=== PATIENT | male | born 1980 | race Caucasian/White ===

== ENCOUNTER 2019-08-27 14:53 | Emergency (ER) | payer BC ==
[2019-08-27 16:43] LABS: ANION GAP 14.1; CHLORIDE,CL 99 mmol/L (101-111); SODIUM,NA 136 mmol/L (135-145)
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
== END 2019-08-27 17:37 | disposition home or self-care (01) ==
LOC: DL.ED 14:53
DX: T17.900A Unspecified foreign body in respiratory tract, part unspecified causing asphyxiation, initial encounter (principal); R05 Cough; R11.10 Vomiting, unspecified; I10 Essential (primary) hypertension; F17.210 Nicotine dependence, cigarettes, uncomplicated; Z79.899 Other long term (current) drug therapy
CPT/HCPCS: 36415; 80053; 85025; 85379; 99284

== ENCOUNTER → 2020-03-14 | Day surgery (SDC) | payer BC ==
[~2020-03-14] MED LIST: Dextrose 5%-0.45% NaCl 1,000 ML IV SCH; Midazolam 1 MG/ML 2 ML SDV IV ONE; Midazolam 1 MG/ML 2 ML SDV ONE; Sodium Chloride 0.9% 10 ML Syringe FLUSH PRN; fentaNYL 100 MCG/2 ML SDV IV ONE; fentaNYL 100 MCG/2 ML SDV ONE
--- NOTE | 2020-03-14 09:11 | OR ---
DATE: 03/14/2020 PROCEDURE: Esophagogastroduodenoscopy and multiple pinch biopsies. INSTRUMENT USED: [id number] Olympus video panendoscope. PREMEDICATIONS: No oral or topical anesthesia used. Fentanyl 100 mcg intravenous, Versed 2 mg intravenous. The procedure was done under pulse oximetry, BP recording, and mechanical manufacturing engineer. INDICATION: The patient with longstanding persistent heartburn, unexplained and not responsive to medical measures and on high-dose PPI. Esophagogastroduodenoscopy is performed for detection of any active erosive lesions, Poe esophagus and/or malignancy also under consideration, H. pylori status to be determined, endoscopic hemostasis therapy if needed. DESCRIPTION OF PROCEDURE: The scope was passed with ease. Adequate visualization of the esophagus was made from proximal to distal areas. No upper esophageal lesions identified. No distal esophageal stricture. No uphill or downhill esophageal varices. No Lenka-Kingsley tear. No evidence of erosive esophagitis by [place] criteria. No esophageal polyp or tumor mass identified. Z-line was seen at around 40 cm distal to the oral verge, configuration consistent with grade 1 by ZAP classification. No proximal gastric varices noted. Gastric fundus examination by retroflexion showed no polypoid lesions. No gastric ulcer, malignant mass, or vascular ectasia identified. Duodenal bulb was unremarkable. Visualized 2nd part of the duodenum was normal. Multiple pinch biopsies were taken from the gastric antrum and proximal body and sent for PyloriTek test for H. pylori and histopathology. Four-quadrant biopsies were also taken from the distal and proximal esophagus and sent for any histopathologic evidence of esophageal eosinophilia. No bleeding was noted from any of the visualized areas at the completion of examination. IMPRESSION: Normal study. The patient tolerated the procedure well. [facility] /[id number]
--- NOTE | 2020-03-14 10:18 | LETTER ---
DATE: 03/14/2020 AMAURY [place] [address] Dear Ms. Matos: Mr. Kurtis Frias had esophagogastroduodenoscopy done this morning and he tolerated the procedure well. I herewith send a copy of the endoscopy note and photographs for your review. Thank you. Sincerely, [facility] /[id number] MTDD
== END | disposition home or self-care (01) ==
LOC: DL.ENDO 06:27
PROVIDERS: ATTEND Internal Medicine Gastroenterology
DX: R12 Heartburn (principal); E66.09 Other obesity due to excess calories; I10 Essential (primary) hypertension; K21.9 Gastro-esophageal reflux disease without esophagitis; F17.210 Nicotine dependence, cigarettes, uncomplicated; Z87.828 Personal history of other (healed) physical injury and trauma; Z79.899 Other long term (current) drug therapy; Z68.29 Body mass index [BMI] 29.0-29.9, adult
CPT/HCPCS: 43239; 87077; J2250; J3010; J7042

== ENCOUNTER 2020-09-16 19:55 | Inpatient (IN) | payer BC ==
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
[2020-09-16] MEDS ORDERED: Ondansetron 4 MG/2 ML SDV IVPUSH ONE (20:17)
[2020-09-16] MEDS ORDERED: fentaNYL 100 MCG/2 ML SDV IVPUSH ONE ×2 (20:17→22:02)
[2020-09-16] MEDS ORDERED: Sodium Chloride 0.9% 1,000 ML IV ONE (20:17)
[2020-09-16] MEDS ORDERED: Iopamidol 612 MG/ML 100 ML Bottle IVPUSH ONE (20:20)
[2020-09-16 20:40] LABS: ANION GAP 12.4 mEq/L (7-13); CHLORIDE,CL 99 mmol/L (98-107); SODIUM,NA 137 mmol/L (136-145)
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
[2020-09-16] MEDS ORDERED: Acetaminophen 500 MG Tab PO PRN (23:00)
[2020-09-16] MEDS ORDERED: Enoxaparin 40 MG/0.4 ML Syringe SUBCUT SCH (23:00)
[2020-09-16] MEDS ORDERED: Zolpidem 5 MG Tab PO PRN (23:02)
[2020-09-16] MEDS ORDERED: LORazepam 2 MG/ML SDV IV PRN (23:04)
[2020-09-16] MEDS ORDERED: Ketorolac 30 MG/ML SDV IVPUSH PRN (23:06)
[2020-09-16] MEDS ORDERED: Zolpidem 5 MG Tab PO ONE (23:10)
[2020-09-16] MEDS ORDERED: Enoxaparin 40 MG/0.4 ML Syringe SUBCUT ONE (23:10)
[2020-09-17] MEDS ORDERED: Ketorolac 30 MG/ML SDV IVPUSH ONE (00:15)
[2020-09-17] MEDS ORDERED: HYDROmorphone 1 MG/ML Syringe IV ONE (00:15)
[2020-09-17] MEDS ORDERED: Lactated Ringers 1,000 ML IV ONE (00:25)
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
[2020-09-17] MEDS: HYDROmorphone 1 MG/ML Syringe IV PRN ×4 (05:14→22:06)
[2020-09-17] MEDS: Lactated Ringers 1,000 ML IV SCH ×5 (05:15→20:03)
[2020-09-17] MEDS ORDERED: Omeprazole 20 MG Cap.CR PO SCH (06:00)
[2020-09-17 06:55] LABS: ANION GAP 14.1 mEq/L (7-13); CHLORIDE,CL 102 mmol/L (98-107); SODIUM,NA 138 mmol/L (136-145)
[2020-09-17] MEDS: Enoxaparin 40 MG/0.4 ML Syringe SUBCUT SCH (08:56)
[2020-09-17] MEDS ORDERED: LORazepam 1 MG Tab PO PRN (09:23)
[2020-09-17] MEDS ORDERED: LORazepam 2 MG/ML SDV IV PRN (09:30)
--- NOTE | 2020-09-17 12:14 | PCM.PN ---
- General Info Date of Service: 09/17/20 Admission Dx/Problem (Free Text): Admission Diagnosis/Problem Admission Diagnosis/Problem Pancreatitis Subjective Update: Pt was seen in Room, still has pain but improving and mild nausea no vomiting, No fever or chill, Had no BM Functional Status: Reports: Pain Controlled, Tolerating Diet (will start with clear liquid), Ambulating, Urinating - Review of Systems General: Denies: Fever, Weakness, Malaise HEENT: Denies: Dysphasia, Post Nasal Drip, Sinus Congestion, Sore Throat Pulmonary: Denies: Shortness of Breath, Cough, Wheezing Cardiovascular: Denies: Chest Pain, Dyspnea on Exertion, Lightheadedness Gastrointestinal: Reports: Abdominal Pain. Denies: Diarrhea, Difficulty Swallowing, Nausea, Vomiting Genitourinary: Denies: Dysuria, Burning, Urgency, Flank Pain Musculoskeletal: Denies: Neck Pain, Leg Pain, Joint Pain Skin: Denies: Cyanosis, Jaundice, Bruising, Pruritis, Rash Neurological: Denies: Confusion, Dizziness, Tremors, Weakness Psychiatric: Denies: Confusion, Anxiety, Agitation - Patient Data Vitals - Most Recent: Last Vital Signs Temp 36.8 C 09/17/20 08:00 Pulse 62 09/17/20 08:00 Resp 16 09/17/20 08:00 BP 157/95 H 09/17/20 08:00 Pulse Ox 97 09/17/20 08:00 Weight - Most Recent: 106.594 kg I&O - Last 24 Hours: Intake & Output 09/16/20 09/17/20 09/17/20 22:59 06:59 14:59 Intake Total 1000 Output Total 700 Balance 300 Lab Results Last 24 Hours: Laboratory Results - last 24 hr 09/16/20 09/16/20 09/16/20 Range/Units 20:06 20:06 20:06 WBC 10.9 H (5.0-10.0) 10^3/uL RBC 4.86 (4.6-6.2) 10^6/uL Hgb 16.8 D (14.0-18.0) g/dL Hct 47.1 (40.0-54.0) % MCV 96.9 (80-100) fL MCH 34.6 H (27.0-34.0) pg MCHC 35.7 H (33.0-35.0) g/dL Plt Count 212 (150-450) 10^3/uL Neut % (Auto) 69.8 (42.2-75.2) % Lymph % (Auto) 18.5 L (20.5-50.1) % [place] % (Auto) 10.2 H (2-8) % Eos % (Auto) 0.9 L (1.0-3.0) % Baso % (Auto) 0.6 (0.0-1.0) % Sodium 137 (136-145) mmol/L Potassium 4.4 (3.5-5.1) mmol/L Chloride 99 (98-107) mmol/L Carbon Dioxide 30 (21-32) mmol/L Anion Gap 12.4 (7-13) mEq/L BUN 10 (7-18) mg/dL Creatinine 1.01 (0.70-1.30) mg/dL Est Cr Clr Drug Dosing 116.20 mL/min Estimated GFR (MDRD) > 60 BUN/Creatinine Ratio 9.9 (No establ ref range) Glucose 134 H (74-99) mg/dL Lactic Acid 2.0 (0.4-2.0) mmol/L Calcium 9.8 (8.5-10.1) mg/dL Phosphorus (2.6-4.7) mg/dL Magnesium (1.8-2.4) mg/dL Total Bilirubin 0.5 (0.2-1.0) mg/dL Direct Bilirubin (0.0-0.2) mg/dL Indirect Bilirubin AST 94 H (15-37) U/L ALT 207 H (16-63) U/L Alkaline Phosphatase 84 (46-116) U/L Total Protein 7.6 (6.4-8.2) g/dL Albumin 4.4 (3.4-5.0) g/dL Globulin 3.2 Albumin/Globulin Ratio 1.38 Amylase 869 H (25-115) U/L Lipase 9492 H (73-393) U/L Urine Color (YELLOW) Urine Appearance (CLEAR) Urine pH (5.0-9.0) Ur Specific [place] (1.005-1.030) Urine Protein (NEGATIVE) Urine Glucose (UA) (NEGATIVE) Urine Ketones (NEGATIVE) Urine Occult Blood (NEGATIVE) Urine Nitrite (NEGATIVE) Urine Bilirubin (NEGATIVE) Urine Urobilinogen (0.2-1.0) mg/dL Ur Leukocyte Esterase (NEGATIVE) Ethyl Alcohol (0) mg/dL SARS-CoV-2 RNA (ALEN) (NEGATIVE) 09/16/20 09/16/20 09/17/20 Range/Units 20:06 21:59 04:55 WBC (5.0-10.0) 10^3/uL RBC (4.6-6.2) 10^6/uL Hgb (14.0-18.0) g/dL Hct (40.0-54.0) % MCV (80-100) fL MCH (27.0-34.0) pg MCHC (33.0-35.0) g/dL Plt Count (150-450) 10^3/uL Neut % (Auto) (42.2-75.2) % Lymph % (Auto) (20.5-50.1) % [place] % (Auto) (2-8) % Eos % (Auto) (1.0-3.0) % Baso % (Auto) (0.0-1.0) % Sodium (136-145) mmol/L Potassium (3.5-5.1) mmol/L Chloride (98-107) mmol/L Carbon Dioxide (21-32) mmol/L Anion Gap (7-13) mEq/L BUN (7-18) mg/dL Creatinine (0.70-1.30) mg/dL Est Cr Clr Drug Dosing mL/min Estimated GFR (MDRD) BUN/Creatinine Ratio (No establ ref range) Glucose (74-99) mg/dL Lactic Acid (0.4-2.0) mmol/L Calcium (8.5-10.1) mg/dL Phosphorus (2.6-4.7) mg/dL Magnesium (1.8-2.4) mg/dL Total Bilirubin (0.2-1.0) mg/dL Direct Bilirubin (0.0-0.2) mg/dL Indirect Bilirubin AST (15-37) U/L ALT (16-63) U/L Alkaline Phosphatase (46-116) U/L Total Protein (6.4-8.2) g/dL Albumin (3.4-5.0) g/dL Globulin Albumin/Globulin Ratio Amylase (25-115) U/L Lipase (73-393) U/L Urine Color Yellow (YELLOW) Urine Appearance Slightly cloudy (CLEAR) Urine pH 5.5 (5.0-9.0) Ur Specific [place] 1.015 (1.005-1.030) Urine Protein Negative (NEGATIVE) Urine Glucose (UA) Negative (NEGATIVE) Urine Ketones 15 H (NEGATIVE) Urine Occult Blood Negative (NEGATIVE) Urine Nitrite Negative (NEGATIVE) Urine Bilirubin Negative (NEGATIVE) Urine Urobilinogen 0.2 (0.2-1.0) mg/dL Ur Leukocyte Esterase Negative (NEGATIVE) Ethyl Alcohol < 3 (0) mg/dL SARS-CoV-2 RNA (ALEN) Negative (NEGATIVE) 09/17/20 09/17/20 Range/Units 05:55 05:55 WBC 6.6 (5.0-10.0) 10^3/uL RBC 4.44 L (4.6-6.2) 10^6/uL Hgb 15.2 D (14.0-18.0) g/dL Hct 43.4 (40.0-54.0) % MCV 97.7 (80-100) fL MCH 34.2 H (27.0-34.0) pg MCHC 35.0 (33.0-35.0) g/dL Plt Count 164 (150-450) 10^3/uL Neut % (Auto) 76.0 H (42.2-75.2) % Lymph % (Auto) 14.1 L (20.5-50.1) % [place] % (Auto) 9.2 H (2-8) % Eos % (Auto) 0.2 L (1.0-3.0) % Baso % (Auto) 0.5 (0.0-1.0) % Sodium 138 (136-145) mmol/L Potassium 4.1 (3.5-5.1) mmol/L Chloride 102 (98-107) mmol/L Carbon Dioxide 26 (21-32) mmol/L Anion Gap 14.1 H (7-13) mEq/L BUN 8 (7-18) mg/dL Creatinine 0.90 (0.70-1.30) mg/dL Est Cr Clr Drug Dosing 130.40 mL/min Estimated GFR (MDRD) > 60 BUN/Creatinine Ratio (No establ ref range) Glucose 115 H (74-99) mg/dL Lactic Acid (0.4-2.0) mmol/L Calcium 9.0 (8.5-10.1) mg/dL Phosphorus 4.5 (2.6-4.7) mg/dL Magnesium 2.0 (1.8-2.4) mg/dL Total Bilirubin 0.7 (0.2-1.0) mg/dL Direct Bilirubin 0.2 (0.0-0.2) mg/dL Indirect Bilirubin 0.5 AST 54 H (15-37) U/L ALT 146 H (16-63) U/L Alkaline Phosphatase 69 (46-116) U/L Total Protein 6.0 L (6.4-8.2) g/dL Albumin 3.6 (3.4-5.0) g/dL Globulin 2.4 Albumin/Globulin Ratio 1.5 Amylase (25-115) U/L Lipase 2854 H (73-393) U/L Urine Color (YELLOW) Urine Appearance (CLEAR) Urine pH (5.0-9.0) Ur Specific [place] (1.005-1.030) Urine Protein (NEGATIVE) Urine Glucose (UA) (NEGATIVE) Urine Ketones (NEGATIVE) Urine Occult Blood (NEGATIVE) Urine Nitrite (NEGATIVE) Urine Bilirubin (NEGATIVE) Urine Urobilinogen (0.2-1.0) mg/dL Ur Leukocyte Esterase (NEGATIVE) Ethyl Alcohol (0) mg/dL SARS-CoV-2 RNA (ALEN) (NEGATIVE) Med Orders - Current: Current Medications Acetaminophen (Tylenol Extra Strength) 500 mg PO Q6H PRN PRN Reason: PAIN (1-3) / FEVER >100.4F Enoxaparin Sodium (Lovenox) 40 mg SUBCUT DAILY [facility] Last Admin: 09/17/20 08:56 Dose: 40 mg Documented by: Hydromorphone HCl (Dilaudid) 1 mg IV Q4H PRN PRN Reason: Pain (severe 7-10) Last Admin: 09/17/20 10:35 Dose: 1 mg Documented by: Lactated Ringer's (Ringers, Lactated) 1,000 mls @ 200 mls/hr IV .Q5H LEO Last Admin: 09/17/20 10:28 Dose: 200 mls/hr Documented by: Lisinopril (Prinivil) 20 mg PO DAILY [facility] Lorazepam (Ativan) 0 mg IV TITRATE PRN PRN Reason: alcohol withdrawal Lorazepam (Ativan) 0 mg PO TITRATE PRN PRN Reason: alcohol withdrawal Metoprolol Succinate (Toprol Xl) 50 mg PO DAILY [facility] Omeprazole (Omeprazole) 40 mg PO ACBREAKFAST LEO Thiamine HCl (Vitamin B-1) 100 mg IV BEDTIME LEO Zolpidem Tartrate (Ambien) 5 mg PO BEDTIME PRN PRN Reason: INSOMNIA Discontinued Medications Enoxaparin Sodium (Lovenox) 40 mg SUBCUT BEDTIME LEO Fentanyl (Sublimaze) 50 mcg IVPUSH ONETIME ONE Stop: 09/16/20 20:18 Last Admin: 09/16/20 20:43 Dose: 50 mcg Documented by: Fentanyl (Sublimaze) 50 mcg IVPUSH ONETIME ONE Stop: 09/16/20 22:03 Last Admin: 09/16/20 22:13 Dose: 50 mcg Documented by: Sodium Chloride (Normal Saline) 1,000 mls @ 250 mls/hr IV .BOLUS ONE Stop: 09/17/20 00:16 Last Admin: 09/16/20 20:41 Dose: 250 mls/hr Documented by: Iopamidol (Isovue-300 (61%)) 100 ml IVPUSH ONETIME ONE Stop: 09/16/20 20:21 Ketorolac Tromethamine (Toradol) 30 mg IVPUSH Q8H PRN PRN Reason: PAIN Last Admin: 09/17/20 08:54 Dose: 30 mg Documented by: Lorazepam (Ativan) 1 - 2 mg IV Q2H PRN PRN Reason: WITHDRAWALS Ondansetron HCl (Zofran) 4 mg IVPUSH ONETIME ONE Stop: 09/16/20 20:18 Last Admin: 09/16/20 20:42 Dose: 4 mg Documented by: - Exam Quality Assessment: DVT Prophylaxis. No: Supplemental Oxygen, Central Line/PICC, Urine Catheter General: Alert, Oriented, Cooperative, No Acute Distress HEENT: Pupils Equal, Pupils Reactive, EOMI, Mucous Membr. Moist/[place] Neck: Supple, No JVD, No Thyromegaly Lungs: Clear to Auscultation, Normal Respiratory Effort Cardiovascular: Regular Rate, Regular Rhythm, No Murmurs GI/Abdominal Exam: Normal Bowel Sounds, Tender (around epigastric area and also mid abdomn above umbilicus ). No: Guarding, Rebound (Male) Exam: Deferred Back Exam: Normal Inspection, Full Range of Motion. No: Vertebral Tenderness Extremities: Normal Inspection, No Pedal Edema Skin: Warm, Dry, Intact Neurological: No New Focal Deficit Psy/Mental Status: Alert, Normal Affect, Normal Mood Sepsis Event Note - Evaluation Sepsis Screening Result: No Definite Risk - Focused Exam Vital Signs: Vital Signs Temp Pulse Resp BP Pulse Ox 09/17/20 08:00 36.8 C 62 16 157/95 H 97 09/17/20 05:20 36.2 C 67 18 141/94 H 97 - Problem List Review Problem List Initiated/Reviewed/Updated: Yes - My Orders Last 24 Hours: My Active Orders 09/16/20 23:00 Acetaminophen [Tylenol Extra Strength] 500 mg PO Q6H PRN HYDROmorphone [Dilaudid] 1 mg IV Q4H PRN 09/16/20 23:02 Zolpidem [Ambien] 5 mg PO BEDTIME PRN 09/16/20 23:15 Lactated Ringers [Ringers, Lactated] 1,000 ml IV 200 mls/hr 09/17/20 09:00 Enoxaparin [Lovenox] 40 mg SUBCUT DAILY 09/17/20 09:23 LORazepam [Ativan] 0 mg PO TITRATE PRN 09/17/20 09:30 LORazepam [Ativan] 0 mg IV TITRATE PRN 09/17/20 21:00 Thiamine [Vitamin B-1] 100 mg IV BEDTIME - Plan Plan:: This a 40-year-old man with medical history of hypertension, gastroesophageal flux disease and alcohol use disorder. The patient has been a chronic alcoholic. Drinks more than 12 packs of beer per day. This evening at about 6 PM, patient began to experience pain at epigastrium. It worsened and he started having nausea and vomiting. Has vomited multiple times. Last alcohol use was today prior to presentation. Patient was found to have elevated serum lipase and amylase. 1. Acute pancreatitis, alcohol induced Serum lipase is greater than 9000 -It is coming down and will start him on clear lquid diet and advance as tolerated 2. Alcohol withdrawal The patient is tremulous and he is on alcohol withdrawal protocol -Discuss with pt about going to alcohol rehab and he does not want to go, he says he will do by himself 3. Hypertension Blood pressure has been elevated and he does not want to tke medication without food, will give IV metoprolol 5 mg 4. Gastroesophageal reflux disease Proton pump inhibitor DVT prophylaxis: He is on enoxaparin .
[2020-09-17] MEDS ORDERED: Metoclopramide 10 MG/2 ML SDV IVPUSH ONE (13:00)
[2020-09-17] MEDS: Lisinopril 20 MG Tab PO SCH (13:24)
[2020-09-17] MEDS: Metoprolol Succinate 50 MG Tab.ER PO SCH (13:24)
[2020-09-17] MEDS: amLODIPine 5 MG Tab PO SCH (16:43)
[2020-09-17] MEDS ORDERED: Thiamine 200 MG/2 ML MDV IV SCH (21:00)
[2020-09-18] MEDS: Lactated Ringers 1,000 ML IV SCH ×2 (01:04→06:01)
[2020-09-18 06:53] LABS: ANION GAP 10.7 mEq/L (7-13); CHLORIDE,CL 99 mmol/L (98-107); SODIUM,NA 136 mmol/L (136-145)
[2020-09-18] MEDS: Metoprolol Succinate 50 MG Tab.ER PO SCH (09:28)
[2020-09-18] MEDS: Lisinopril 20 MG Tab PO SCH (09:29)
[2020-09-18] MEDS: amLODIPine 5 MG Tab PO SCH (09:29)
[2020-09-18] MEDS: Enoxaparin 40 MG/0.4 ML Syringe SUBCUT SCH (09:31)
--- NOTE | 2020-09-18 10:00 | PCM.DCSUM1 ---
Discharge Summary - Hospital Course Free Text/Narrative:: This a 40-year-old man with medical history of hypertension, gastroesophageal flux disease and alcohol use disorder. The patient has been a chronic alcoholic. Drinks more than 12 packs of beer per day. This evening at about 6 PM, patient began to experience pain at epigastrium. It worsened and he started having nausea and vomiting. Has vomited multiple times. Last alcohol use was today prior to presentation. Patient was found to have elevated serum lipase and amylase. He was admitted to hospital with alcoholic pancreatitis and was getting LR infusion and also placed NPO status and after diet advance to clear liquid and tolerated and still his Lipase is >2000 and I discussed with him that he needs to continue to stay but he is signing AMA and leaving the hospital. discussed with him that his status will get worse if he starts drinking and adv ance the diet too quickly to solid. He is advised to come back if things get worse. - Discharge Data Discharge Date: 09/18/20 Discharge Disposition: Home, Self-Care 01 Condition: Good - Referral to Home Health Primary Care Physician: PCP None - Patient Instructions Diet: Clear Liquid Diet Activity: As Tolerated Driving: Do Not Drive Showering/Bathing: May Shower Notify Provider of: Fever, Nausea and/or Vomiting Other/Special Instructions: This a 40-year-old man with medical history of hypertension, gastroesophageal flux disease and alcohol use disorder. The patient has been a chronic alcoholic. Drinks more than 12 packs of beer per day. This evening at about 6 PM, patient began to experience pain at epigastrium. It worsened and he started having nausea and vomiting. Has vomited multiple times. Last alcohol use was today prior to presentation. Patient was found to have elevated serum lipase and amylase. He was admitted to hospital with alcoholic pancreatitis and was getting LR infusion and also placed NPO status and after diet advance to clear liquid and tolerated and still his Lipase is >2000 and I discussed with him that he needs to continue to stay but he is signing AMA and leaving the hospital. Discussed with him that his status will get worse if he starts drinking and advance the diet too quickly to solid. He is advised to come back if things get worse. He is advise to follow ith PMD next week and also discussed about alcohol rehab - Discharge Plan *PRESCRIPTION DRUG MONITORING PROGRAM REVIEWED*: No *COPY OF PRESCRIPTION DRUG MONITORING REPORT IN PATIENT MORIS: No Home Medications: Home Meds Metoprolol Succinate [Toprol XL 50mg] 50 mg PO DAILY 08/27/19 [History] lisinopriL [Lisinopril] 20 mg PO DAILY 08/27/19 [History] Esomeprazole Magnesium 40 mg PO DAILY 09/17/20 [History] Oxygen Therapy Mode: Room Air Forms: ED Department Discharge Referrals: PCP,None [Primary Care Provider] - - Discharge Summary/Plan Comment DC Time >30 min.: Yes Discharge Summary/Plan Comment: This a 40-year-old man with medical history of hypertension, gastroesophageal flux disease and alcohol use disorder. The patient has been a chronic alcoholic. Drinks more than 12 packs of beer per day. This evening at about 6 PM, patient began to experience pain at epigastrium. It worsened and he started having nausea and vomiting. Has vomited multiple times. Last alcohol use was today prior to presentation. Patient was found to have elevated serum lipase and amylase. He was placed NPO and started on LR infusion, advanced diet to clear liqiod and he tolerated. His Lipase still >2000 and he is advised to stay in hospital but he is leaving against Medical advise. 1. Acute pancreatitis, alcohol induced Serum lipase is greater than >2000 ( admitted with lipase at >9000) -It is coming down and continue him on clear liquid diet and will advance as tolerated gradually -He is leaving today AMA and advise not to advance diet too quickly and advise not to drink alcohol 2. Alcohol withdrawal The patient is tremulous and he is on alcohol withdrawal protocol -Discuss with pt about going to alcohol rehab and he does not want to go, he says he will do by himself 3. Hypertension Blood pressure has been elevated and will resume his home Medication 4. Gastroesophageal reflux disease Proton pump inhibitor 5. Disposition: Leaving AMA and advise to follow with PMD next week DVT prophylaxis: He is on enoxaparin - General Info Date of Service: 09/18/20 Admission Dx/Problem (Free Text: Admission Diagnosis/Problem Admission Diagnosis/Problem Alcoholic Pancreatitis Subjective Update: Pt was seen in Room, he says his pain has improved and no nausea no vomiting, No fever or chill, and he is leaving against Medical advise Functional Status: Reports: Pain Controlled, Tolerating Diet (clear liquid), Ambulating, Urinating - Review of Systems General: Reports: Appetite (good). Denies: Fever, Weakness, Chills HEENT: Denies: Headaches, Sinus Congestion, Sore Throat, Visual Changes Pulmonary: Denies: Shortness of Breath, Cough, Sputum, Wheezing Cardiovascular: Denies: Chest Pain, Dyspnea on Exertion, Lightheadedness Gastrointestinal: Reports: Abdominal Pain. Denies: Decreased Appetite, Diarrhea, Difficulty Swallowing, Nausea, Vomiting Genitourinary: Denies: Dysuria, Burning, Retention, Flank Pain Musculoskeletal: Denies: Neck Pain, Foot Pain, Joint Swelling Skin: Denies: Cyanosis, Jaundice, Bruising, Rash Neurological: Denies: Confusion, Numbness, Tremors Psychiatric: Denies: Confusion, Anxiety, Agitation - Patient Data Vitals - Most Recent: Last Vital Signs Temp 37.0 C 09/18/20 08:00 Pulse 85 09/18/20 09:28 Resp 18 09/18/20 08:00 BP 157/93 H 09/18/20 09:29 Pulse Ox 92 L 09/18/20 08:00 Weight - Most Recent: 106.594 kg I&O - Last 24 hours: Intake & Output 09/17/20 09/18/20 09/18/20 22:59 06:59 14:59 Intake Total 2250 1600 Output Total 1800 Balance 2250 -200 Lab Results - Last 24 hrs: Laboratory Results - last 24 hr 09/18/20 Range/Units 06:16 Sodium 136 (136-145) mmol/L Potassium 3.7 (3.5-5.1) mmol/L Chloride 99 (98-107) mmol/L Carbon Dioxide 30 (21-32) mmol/L Anion Gap 10.7 (7-13) mEq/L BUN 6 L (7-18) mg/dL Creatinine 1.05 (0.70-1.30) mg/dL Est Cr Clr Drug Dosing 111.77 mL/min Estimated GFR (MDRD) > 60 Glucose 99 (74-99) mg/dL Calcium 9.1 (8.5-10.1) mg/dL Lipase 2053 H (73-393) U/L Med Orders - Current: Current Medications Acetaminophen (Tylenol Extra Strength) 500 mg PO Q6H PRN PRN Reason: PAIN (1-3) / FEVER >100.4F Last Admin: 09/17/20 20:27 Dose: 500 mg Documented by: Amlodipine Besylate (Norvasc) 5 mg PO DAILY [facility] Last Admin: 09/18/20 09:29 Dose: 5 mg Documented by: Enoxaparin Sodium (Lovenox) 40 mg SUBCUT DAILY [facility] Last Admin: 09/18/20 09:31 Dose: 40 mg Documented by: Hydromorphone HCl (Dilaudid) 1 mg IV Q4H PRN PRN Reason: Pain (severe 7-10) Last Admin: 09/17/20 22:06 Dose: 1 mg Documented by: Lactated Ringer's (Ringers, Lactated) 1,000 mls @ 200 mls/hr IV .Q5H [facility] Last Admin: 09/18/20 06:01 Dose: 200 mls/hr Documented by: Lisinopril (Prinivil) 20 mg PO DAILY [facility] Last Admin: 09/18/20 09:29 Dose: 20 mg Documented by: Lorazepam (Ativan) 0 mg IV TITRATE PRN PRN Reason: alcohol withdrawal Lorazepam (Ativan) 0 mg PO TITRATE PRN PRN Reason: alcohol withdrawal Metoprolol Succinate (Toprol Xl) 50 mg PO DAILY [facility] Last Admin: 09/18/20 09:28 Dose: 50 mg Documented by: Omeprazole (Omeprazole) 40 mg PO ACBREAKFAST [facility] Last Admin: 09/18/20 06:02 Dose: 40 mg Documented by: Thiamine HCl (Vitamin B-1) 100 mg IV BEDTIME [facility] Last Admin: 09/17/20 20:27 Dose: 100 mg Documented by: Zolpidem Tartrate (Ambien) 5 mg PO BEDTIME PRN PRN Reason: INSOMNIA Discontinued Medications Enoxaparin Sodium (Lovenox) 40 mg SUBCUT BEDTIME [facility] Fentanyl (Sublimaze) 50 mcg IVPUSH ONETIME ONE Stop: 09/16/20 20:18 Last Admin: 09/16/20 20:43 Dose: 50 mcg Documented by: Fentanyl (Sublimaze) 50 mcg IVPUSH ONETIME ONE Stop: 09/16/20 22:03 Last Admin: 09/16/20 22:13 Dose: 50 mcg Documented by: Sodium Chloride (Normal Saline) 1,000 mls @ 250 mls/hr IV .BOLUS ONE Stop: 09/17/20 00:16 Last Admin: 09/16/20 20:41 Dose: 250 mls/hr Documented by: Iopamidol (Isovue-300 (61%)) 100 ml IVPUSH ONETIME ONE Stop: 09/16/20 20:21 Ketorolac Tromethamine (Toradol) 30 mg IVPUSH Q8H PRN PRN Reason: PAIN Last Admin: 09/17/20 08:54 Dose: 30 mg Documented by: Lorazepam (Ativan) 1 - 2 mg IV Q2H PRN PRN Reason: WITHDRAWALS Metoclopramide HCl (Reglan) 5 mg IVPUSH ONETIME ONE Stop: 09/17/20 13:01 Last Admin: 09/17/20 13:25 Dose: 5 mg Documented by: Ondansetron HCl (Zofran) 4 mg IVPUSH ONETIME ONE Stop: 09/16/20 20:18 Last Admin: 09/16/20 20:42 Dose: 4 mg Documented by: - Exam Quality Assessment: Reports: DVT Prophylaxis. Denies: Supplemental Oxygen, Urine Catheter General: Reports: Alert, Oriented, Cooperative, No Acute Distress HEENT: Reports: Pupils Equal, Pupils Reactive, EOMI, Mucous Membr. Moist/Desha Neck: Reports: Supple, No JVD, No Thyromegaly Lungs: Reports: Clear to Auscultation, Normal Respiratory Effort. Denies: Crackles, Wheezing Cardiovascular: Reports: Regular Rate, Regular Rhythm, No Murmurs GI/Abdominal Exam: Normal Bowel Sounds, Tender. No: Guarding, Rigid, Rebound (Male) Exam: Deferred Rectal (Males) Exam: Deferred Back Exam: Reports: Normal Inspection, Full Range of Motion Extremities: Normal Inspection, No Pedal Edema Skin: Reports: Warm, Dry, Intact Neurological: Reports: No New Focal Deficit Psy/Mental Status: Reports: Alert, Normal Affect, Normal Mood
== END 2020-09-18 10:00 | disposition home or self-care (01) | DRG 282 ==
LOC: DL.ED 19:55 → DL.MS 21:59
PROVIDERS: ADMIT Hospitalist; ATTEND Internal Medicine Nephrology
DX: K85.20 Alcohol induced acute pancreatitis without necrosis or infection (principal); I10 Essential (primary) hypertension; K21.9 Gastro-esophageal reflux disease without esophagitis; F10.939 Alcohol use, unspecified with withdrawal, unspecified; H54.7 Unspecified visual loss; Z98.52 Vasectomy status; Z20.828 Contact with and (suspected) exposure to other viral communicable diseases
CPT/HCPCS: 36415; 74177; 80048; 80053; 80076; 80307; 81003; 82150; 83605; 83690; 83735; 84100; 85025; 96374; 96375; 99283; 99285-25; A9270-GY; J1170; J1650; J1885; J2405; J2765; J3010; J3411; J7030; J7120; U0002